=== PATIENT | female | born 2000 | race Caucasian/White ===

== ENCOUNTER → 2019-06-14 14:52 | Outpatient (CLI) | payer MEDICAID, SELFPAY ==
[2019-06-14 14:22] VITALS: BMI 24.1
[2019-06-14 17:12] LABS: HIV - WCH Non-Reactive (Nonreactive)
[2019-06-16 03:50] LABS: Rapid Plasmin Reagin (RPR) NONREACTIVE (NONREACTIVE)
[2019-06-16 20:07] LABS: HCV Quant. RNA PCR HCV Not Detected IU/mL (.)
[2019-06-16 20:51] LABS: HSV 1 IgG < 0.91 index (0.00-0.90); HSV 2 IgG < 0.91 index (0.00-0.90)
== END ==
PROVIDERS: Nurse Practitioner Women's Health; Referring Provider Obstetrics & Gynecology; Visit Provider Obstetrics & Gynecology
DX: R30.0 Dysuria (principal); Z11.3 Encounter for screening for infections with a predominantly sexual mode of transmission
CPT/HCPCS: 36415; 86592; 86695; 86696; 86703; 87086; 87088; 87522

== ENCOUNTER → 2019-07-19 16:28 | Outpatient (CLI) | payer MEDICAID, SELFPAY ==
[2019-07-19 14:51] VITALS: BMI 24.1
[2019-07-19 22:30] LABS: Chlamydia Trachomatis by PCR POSITIVE (Negative); Neisserai gonorrhoeae by PCR Negative (Negative); Probe Check PASS
== END ==
PROVIDERS: Referring Provider Nurse Practitioner Women's Health; Visit Provider Nurse Practitioner Women's Health
DX: A74.9 Chlamydial infection, unspecified (principal)
CPT/HCPCS: 87491; 87591

== ENCOUNTER → 2019-09-01 18:04 | Outpatient (CLI) | payer MEDICAID, SELFPAY ==
[2019-09-01 13:32] VITALS: BMI 24.1
[2019-09-01 20:53] LABS: Chlamydia Trachomatis by PCR Negative (Negative); Neisserai gonorrhoeae by PCR Negative (Negative); Probe Check PASS; Sample Adequacy Control PASS; Specimen Processing Control PASS
== END ==
PROVIDERS: Visit Provider Nurse Practitioner Women's Health
DX: A74.9 Chlamydial infection, unspecified (principal)
CPT/HCPCS: 87491; 87591

== ENCOUNTER → 2019-10-18 | Outpatient (CLI) | payer MEDICAID, SELFPAY ==
[2019-10-18 14:36] VITALS: BMI 24.1
[2019-10-18 19:55] LABS: Chlamydia Trachomatis by PCR Negative (Negative); Neisserai gonorrhoeae by PCR Negative (Negative); Probe Check PASS; Sample Adequacy Control PASS; Specimen Processing Control PASS
== END | disposition home or self-care (01) ==
LOC: LABSPEC 17:23
PROVIDERS: Referring Provider Nurse Practitioner Women's Health; Visit Provider Nurse Practitioner Women's Health
DX: N93.0 Postcoital and contact bleeding (principal); Z11.3 Encounter for screening for infections with a predominantly sexual mode of transmission
CPT/HCPCS: 87491; 87591

== ENCOUNTER → 2020-05-02 16:42 | Outpatient (CLI) | payer MEDICAID, SELFPAY ==
[2020-05-02 15:26] VITALS: BMI 29.0
[2020-05-02 19:22] LABS: Chlamydia Trachomatis by PCR Negative (Negative); Neisserai gonorrhoeae by PCR Negative (Negative); Probe Check PASS; Sample Adequacy Control PASS; Specimen Processing Control PASS
== END ==
PROVIDERS: Visit Provider Nurse Practitioner Women's Health
DX: Z11.3 Encounter for screening for infections with a predominantly sexual mode of transmission (principal); R10.2 Pelvic and perineal pain
CPT/HCPCS: 87070; 87205; 87491; 87591

== ENCOUNTER → 2020-05-05 10:34 | Outpatient (CLI) | payer MEDICAID, SELFPAY ==
[2020-05-02 15:26] VITALS: BMI 29.0
--- NOTE | 2020-05-05 10:36 | US_ITS ---
STUDY: ULTRASOUND OF THE FEMALE PELVIS - COMPLETE REASON FOR EXAM: Female, 19 years old. pelvic pain LMP: 05/04/2020 TECHNIQUE: Transabdominal and Transvaginal TECHNICAL QUALITY: Adequate. COMPARISON: None. FINDINGS: The uterus is anteverted and is in a midline position. The uterus measures 6.6 x 2.9 x 2.2 cm. Normal uterine cervix. The endometrium measures 4 mm in thickness, and is hyperechoic. There is no demonstrated endometrial mass. There is no demonstrated myometrial mass. I.U.D. - The patient does have an I.U.D. The right ovary is visualized. The right ovary measures 2.8 x 2.5 x 1.9 cm. There is no right ovarian cyst or ovarian mass. There is no visualized right adnexal mass or complex lesion. There is normal arterial and normal venous vascularity. The left ovary is visualized. The left ovary measures 3.4 x 2.2 x 1.7 cm. There is no left ovarian cyst or ovarian mass. There is no visualized left adnexal mass or complex lesion. There is normal arterial and normal venous vascularity. There is no fluid in the cul-de-sac. The pre void volume of the bladder was 514 ml. US/Pelvic (Non ) IMPRESSION: Normal female pelvis. Normal appearance of IUD. Electronically Signed: Mario John MD at 16:01 EST , Service support ,
--- NOTE | 2020-05-05 10:36 | US_ITS ---
STUDY: ULTRASOUND OF THE FEMALE PELVIS - COMPLETE REASON FOR EXAM: Female, 19 years old. pelvic pain LMP: 05/04/2020 TECHNIQUE: Transabdominal and Transvaginal TECHNICAL QUALITY: Adequate. COMPARISON: None. FINDINGS: The uterus is anteverted and is in a midline position. The uterus measures 6.6 x 2.9 x 2.2 cm. Normal uterine cervix. The endometrium measures 4 mm in thickness, and is hyperechoic. There is no demonstrated endometrial mass. There is no demonstrated myometrial mass. I.U.D. - The patient does have an I.U.D. The right ovary is visualized. The right ovary measures 2.8 x 2.5 x 1.9 cm. There is no right ovarian cyst or ovarian mass. There is no visualized right adnexal mass or complex lesion. There is normal arterial and normal venous vascularity. The left ovary is visualized. The left ovary measures 3.4 x 2.2 x 1.7 cm. There is no left ovarian cyst or ovarian mass. There is no visualized left adnexal mass or complex lesion. There is normal arterial and normal venous vascularity. There is no fluid in the cul-de-sac. The pre void volume of the bladder was 514 ml. US/Transvaginal Non- IMPRESSION: Normal female pelvis. Normal appearance of IUD. Electronically Signed: Mario John MD at 16:01 EST , Service support ,
== END ==
PROVIDERS: Referring Provider Nurse Practitioner Women's Health; Visit Provider Nurse Practitioner Women's Health
DX: R10.2 Pelvic and perineal pain (principal)
CPT/HCPCS: 76830; 76856; 93976

== ENCOUNTER → 2021-02-12 12:50 | Outpatient (CLI) | payer MEDICAID, SELFPAY ==
[2021-02-14 22:07] LABS: Chlamydia By Nucleic Acid AMP Negative (Negative)
[2021-02-14 22:32] LABS: Gonococcus By Nucleic Acid AMP Negative (Negative)
[2021-02-15 13:54] LABS: HPV Reflexed? NOT INDICATED
== END ==
PROVIDERS: Referring Provider Nurse Practitioner Women's Health; Visit Provider Nurse Practitioner Women's Health
DX: N76.0 Acute vaginitis (principal); Z11.3 Encounter for screening for infections with a predominantly sexual mode of transmission; Z12.4 Encounter for screening for malignant neoplasm of cervix
CPT/HCPCS: 87070; 87205; 87491; 87591; 88175; G0145

== ENCOUNTER 2021-07-25 13:20 | Outpatient (CLI) | payer MEDICAID, SELFPAY ==
[2021-07-25 14:12] LABS: Amphetamine Urine VISTA NEGATIVE (<1000 ng/mL); Barbiturate Urine VISTA NEGATIVE (< 200 ng/mL); Benzodiazepine Urine VISTA NEGATIVE (< 200 ng/mL); Cocaine Urine VISTA NEGATIVE (< 300 ng/mL); Ecstacy Urine VISTA NEGATIVE (< 500 ng/mL); Methadone Urine VISTA NEGATIVE (< 300 ng/mL); PCP Urine VISTA NEGATIVE (< 25 ng/mL); THC Urine VISTA POSITIVE (< 50 ng/mL); Vista UDS pH Range 7
[2021-07-29 05:07] LABS: Chlamydia By Nucleic Acid AMP Negative (Negative)
[2021-07-29 13:31] LABS: Gonococcus By Nucleic Acid AMP Negative (Negative)
== END 2021-07-25 23:59 | disposition home or self-care (01) ==
LOC: LABSPEC 13:22
PROVIDERS: Visit Provider Obstetrics & Gynecology
DX: Z34.00 Encounter for supervision of normal first pregnancy, unspecified trimester (principal)
CPT/HCPCS: 80307; 87491; 87591

== ENCOUNTER 2021-08-09 16:33 | Outpatient (CLI) | payer MEDICAID, SELFPAY | END 2021-08-09 23:59 | disposition home or self-care (01) | LOC: LABSPEC 16:34 | PROVIDERS: Referring Provider Obstetrics & Gynecology; Visit Provider Obstetrics & Gynecology | DX: O23.40 Unspecified infection of urinary tract in pregnancy, unspecified trimester (principal); Z3A.00 Weeks of gestation of pregnancy not specified | CPT/HCPCS: 87086; 87088 ==

== ENCOUNTER 2021-08-23 12:09 | Outpatient (CLI) | payer MEDICAID, SELFPAY ==
[2021-08-23 12:50] LABS: Absolute Lymphocyte Count 2.18 X10^3/uL (0.83-4.51); Absolute Neutrophil Count 3.8 X10^3/uL (2.0-7.7); Basophil# 0.03 X10^3/uL; Basophil% 0.5 % (0-1); Eosinophil# 0.12 X10^3/uL; Eosinophils% 1.8 % (0-5); Hematocrit 37.8 % (37-47); Lymphocyte # 2.18 X10^3/ul (0.83-4.51); Lymphocyte % 33.3 % (19-41); Mean Corp Hgb Conc 34.4 g/dL (32-36); Mean Corpuscular Hgb 30.2 pg (27.0-32.0); Mean Corpuscular Volume 87.7 fL (81-99); Monocyte# 0.45 X10^3/uL; Monocyte% 6.9 % (0-10); NRBC Flagged by Analyzer 0 % (0-5); Neutrophil # 3.75 X10^3/uL (2.7-7.7); Neutrophil % 57.2 % (47-70); Platelet Count 233 K/mm3 (150-450); RBC Distribution Width CV 12.1 % (11.6-14.6); RBC Distribution Width SD 39.4 fl (35.1-43.9); Red Blood Count 4.31 M/mm3 (4.2-5.4); White Blood Count 6.6 K/mm3 (4.4-11.0)
[2021-08-23 13:15] LABS: NATERA MAILED SPECIMEN
[2021-08-23 14:04] LABS: HIV - WCH Non-Reactive (Nonreactive); Hepatitis B Surface Antigen Non-Reactive (Nonreactive); Hepatitis C Antibody Non-Reactive (Nonreactive); Rubella IgG Reactive (Nonreactive); Syphilis Antibodies Non-reactive
== END 2021-08-23 23:59 | disposition home or self-care (01) ==
LOC: LABSPEC 12:12
PROVIDERS: Referring Provider Obstetrics & Gynecology; Visit Provider Obstetrics & Gynecology
DX: Z34.81 Encounter for supervision of other normal pregnancy, first trimester (principal); Z31.430 Encounter of female for testing for genetic disease carrier status for procreative management
CPT/HCPCS: 36415; 85025; 86703; 86762; 86780; 86803; 86850; 86900; 86901; 87340

== ENCOUNTER 2021-09-03 12:20 | Day surgery (SDC) | payer MEDICAID, SELFPAY ==
--- NOTE | 2021-09-02 20:11 | PCM.HP.BLA ---
History and Physical Date of Admission: 09/03/21 Date of Service: 09/02/21 MR#:[id number]:[id number]: GIOVANNA TERRELL #:[id number]:[id number] Provider:Dr. Nita Hanks, DOAge/Sex: 20/F [facility] Int[facility] Vital Signs 09/02/21 13:27 Height 5 ft 1.5 in Weight: 154 lb 2 oz BMI 28.6 BP 120/68 Intake Visit Reasons: 12WK OB Midlevel Provider Required: No Is patient in pain?: No Allergies No Known Allergies Allergy (Verified 09/02/21 13:27) Medications prenat.vits,piotr,yss-smpt-vdjux 1 tab PO DAILY 07/23/21 [History Confirmed 09/02/21] promethazine 12.5 mg tablet 12.5 mg PO Q6H PRN #60 tab 08/09/21 [Rx Confirmed 09/02/21] ondansetron 4 mg disintegrating tablet 4 mg PO Q4H PRN #60 tab 09/02/21 [Rx Confirmed 09/02/21] Last Menstral Period: 05/26/21 Zika: Zika virus screening: Negative : No PFSH PFSH Medical History Chlamydia infection Migraines MRSA (methicillin resistant Staphylococcus aureus) Surgical History H/O knee surgery [place] teeth extracted Family History Grandmother Breast cancer Mother Cancer Skin Brother Retinal and vitreous disorder Social History adopted: No household members: significant other housing: house number of children: 0 current occupational status: employed and student current occupation: [employer] pets and animals: Yes (avoid litter box) pets and animals: cat(s) sexually active: Yes Smoking Status: Former smoker second hand exposure: No alcohol intake: current details: not since substance use type: does not use seatbelt use: always do you feel safe at home: Yes Pregancy History 1 Elective abortions Hx Para 0 Spontaneous abortions Hx # Term Pregnancies Ectopic pregnancies Hx # Pregnancies Multiple births # of living children HPI 12WK OB Details: GIOVANNA TERRELL is a 20 year old who presents for routine OB visit. OB Visit NATY Calculator Estimated Delivery Date Method Current WG Current Estimate 03/16/22 Ultrasound #2 12w 1d Other Estimates 03/02/22 LMP (Certain) 14w 1d 03/19/22 Ultrasound #1 11w 5d Expected Delivery Route/Plan Labor Preferences- CB/BF classes: [] labor support person: [] labor intervention preferences: [] pain management options preferred: [] cut cord/dad catch: [] : [] PP control planned: [] discussed possible routes of delivery and associated risks: [] special requests: [] Specific Issue/Plans Covid status: [] Flu vaccine: [] Tdap vaccine: [] Rhogam: [] LARC form signed: [] Problem list reviewed and updated with the most current plan of care details and appropriate orders placed. Relevant counseling for the gestational age provided. Continue routine care and follow up unless otherwise noted in visit notes/problem list details Initial Weight: Not Recorded Date EGA Weight BP Urine Prot Glucose FHR FuHt Pres Dilation Effaced St Visit Note 07/25/21 6w 4d 155 lb 8 oz 120/80 106 JV- small CRL measured to be 6w1d FHT 106, maternal heart rate 84. rpt us 2 weeks. 08/09/21 8w 5d 154 lb 6 oz 118/80 Negative Negative 160 JV- normal heart rate, pt reassured. 09/02/21 12w 1d 154 lb 2 oz 120/68 Negative Negative JV- no heart tones on ultrasound. fetus is measuring 9 weeks 3 days pt consents to suction D&C to be performed tomorrow. ACOG First Trimester First Trimester: Discussed Second Trimester Second Trimester: Signs and Symptoms of Labor, Selecting a care provider, Reproductive Life Planning & Contreception, Care Planning, Depression/Anxiety and Intimate Partner Violence; Discussed Tobacco Cessation Third Trimester Third Trimester: Pain Management Plans, Labor support person(s), Immediate Larc, Movement Monitoring, Signs and Symptoms of Preeclampsia and [place] [facility] Diagnostics Diagnostics: Blood Type A POSITIVE Antibody Screen NEGATIVE HIV 1&2 Antibody Non-Reactive (Nonreactive) Rubella IgG Antibody Reactive (Nonreactive) Hgb 13.0 g/dL (12.0-15.0) Hct 37.8 % (37-47) Chlamydia DNA (NATHANIEL) Negative (Negative) N.gonorrhoeae DNA (NATHANIEL) Negative (Negative) Details: HIV: Urine Culture: Sequential Screen: NIPT Screen: ROS Const Denies fever(s) GI Reports as per HPI and Denies abdominal pain Reports as per HPI, Denies abnormal vaginal bleeding, Denies dysuria and Denies vaginal discharge Exam Const General: healthy appearing, comfortable and no acute distress GI Inspection: normal to inspection Palpation: soft and nontender Results POC Urinalysis 2 Dip (Clinic) Office Urine Glucose Negative Last Edit by Yanet Turk on 09/02/21 13:57 Office Urine Protein Negative Last Edit by Yanet Turk on 09/02/21 13:57 Coding Level of Care Code Off vis,new,level 4 Diagnoses Marijuana abuse F12.10 Z3A.12 Weeks of gestation: 12 weeks UTI in O23.40 Nausea/vomiting in O21.9 Supervision of normal first Z34.00 Migraine with aura G43.109 Intractability: not intractable Status migrainosus presence: without status migrainosus Missed O02.1 Assessment and Plan Assessment and Plan (1) Marijuana abuse: Status: Acute Comment: Positive at NOB, random tox (2) : Status: Acute Qualifiers: Weeks of gestation: 12 weeks Qualified Code(s): Z3A.12 - 12 weeks gestation of Comment: Discussed carrier and genetic screen, negative urine culture (3) UTI in : Status: Acute Comment: 07/18 see in ED at [facility] and had UTI/Rx macrobid. Will need repeat culture after done with Rx (4) Nausea/vomiting in : Status: Acute Comment: failed phenergan, zofran sent (5) Supervision of normal first : Status: Acute Comment: Grav 1/0 NATY by LMP 03/02 but US at [facility] 07/18 was 5w 6 d. Need to add to calendar after US BF:James(has daughter) (6) Migraine with aura: Status: Acute Qualifiers: Intractability: not intractable Status migrainosus presence: without status migrainosus Qualified Code(s): G43.109 - Migraine with aura, not intractable, without status migrainosus (7) Missed : Status: Acute Comment: plan for suction dilation and curettage tomorrow 07/05 Plan Details Other Medications: Refilled: ondansetron 4 mg PO Q4H PRN 60 tabs 3RF nausea and vomiting Other Orders: Orders: POC Urinalysis 2 Dip (Clinic) Today 09/02/21 1424<Electronically signed by Nita Hanks DO>Date Nita Hanks DO UPDATE- I have seen the patient and performed any clinically relevant updates to the history and physical exam. Nita Hanks DO
[2021-09-03] VITALS (7 sets, daily range): BP systolic 110–125; BP diastolic 73–91; PULSE 60–97; RESP 15–18; TEMP 36.4–37.1; O2SAT 97–100; BMI 28.9
--- NOTE | 2021-09-03 | POC_PTH ---
PATIENT: GIOVANNA TERRELL #:[id number] [place] [facility] [id number] AGE/SX: ROOM: RE09/03/[address]: Dr. Nita Hanks, : 2000 BED: DIS: 09/03/2021 SPEC #: [id number] RECD: 09/03/21 16:04 STATUS: LARA VAUGHNDelroy #: [id number] TAYA: 09/03/21 00:[address]: Nita Hanks DEPT: SURGICAL PATHOLOGY RECD BY: Rob Webber Tissues: Product of conception, NOS Procedures: Surgery Specimen Level IV HEADER OPERATION: Suction dilation and curettage with genetic Anora testing PRE-OP DIAGNOSIS: Missed TISSUE SUBMITTED: Products of conception for Anora testing MICROSCOPIC DIAGNOSIS Products of conception: Decidua and immature chorionic villi (products of conception). See comment. JANET:deshawn 09/05/2021 COMMENT Results of Anora testing will be reported as an addendum. MICROSCOPIC DESCRIPTION Slides are reviewed. GROSS DESCRIPTION Received without fixative is one container labeled with the patient's name and designated products of conception. The specimen consists of multiple fragments of pink hemorrhagic soft tissue that in aggregate measure 6 x 6 x 1 cm. tissue is not identified. [place] tissue is submitted for Anora study. [place] sections are submitted in two cassettes. / SJ:deshawn 09/04/2021 TC:5 CPT: 52809
[2021-09-03] MEDS: Doxycycline 100 MG CAPSULE PO (13:16)
[2021-09-03] MEDS: Lactated Ringers 1,000 ML 15 ML IV ×2 (13:18→16:19)
[2021-09-03 13:30] LABS: Hematocrit 39.5 % (37-47); Hemoglobin 13.5 g/dL (12.0-15.0); Mean Corp Hgb Conc 34.2 g/dL (32-36); Mean Corpuscular Hgb 30.3 pg (27.0-32.0); Mean Corpuscular Volume 88.8 fL (81-99); Mean Platelet Vol. 9.4 fl (6.2-12.0); Platelet Count 203 K/mm3 (150-450); RBC Distribution Width CV 12.3 % (11.6-14.6); RBC Distribution Width SD 39.9 fl (35.1-43.9); Red Blood Count 4.45 M/mm3 (4.2-5.4); White Blood Count 5.4 K/mm3 (4.4-11.0)
--- NOTE | 2021-09-03 14:33 | PCM.DC ---
Discharge Instructions Diet Discharge Diet: No restrictions Activity Discharge Activity: Return to Normal Activity, May Shower and May Take a Tub Bath (after 1 week) May resume sexual activity in: 1-2 weeks Weight Bearing Status: Weight bearing as tolerated Lifting Restrictions: none Dressing / Incision Call your doctor if you observe: Fever of 101 or Higher, Using more than 1 pad per hour, Shortness of breath and Uncontrolled pain Follow Up Care Please Follow Up With: Nita Hanks DO When: Call [phone] to schedule appointment. Test Results: Test results from this visit will be discussed in further detail at your follow-up appointment, if applicable. Discharge Plan Admission Primary Reason for Your Visit: dilation and curettage Attending Provider: Nita Hanks Instructions Patient Instructions: Miscarriage Trying Again, Loss Grieving, Dilation and Curettage Discharge Orders/Prescriptions Prescriptions: New oxycodone-acetaminophen [Percocet] 5-325 mg tablet 1 tab PO Q4H PRN (Reason: pain) 3 Days Qty: 6 RF: 0 Discontinued ibuprofen 400 mg Tablet 400 mg PO Q6H PRN (Reason: Pain) RF: 0 Referrals / Follow Up: CESILIA CARRILLO [Other] Disposition Disposition (needs filled in before D/C Order can be placed): Home, Self Care
--- NOTE | 2021-09-03 15:17 | PCM.OP.BLANK ---
Problems Associated Problem List Diagnoses (1) Missed : Operative Report Date of Procedure: 09/03/21 Preoperative diagnosis: 12 weeks missed , suspected trisomy on free cell DNA Postoperative diagnosis: 12 weeks missed , suspected trisomy on free cell DNA Surgery: Suction dilation and curettage Surgeon: Dr. Nita Hanks, DO Urine output: none Fluids: 900cc Estimated blood loss: 150cc Details of the proceudre The patient was taken to the operating room and placed under MAC local anesthesia. She was prepped and draped in the normal sterile fashion the dorsal lithotomy position. Bladder was drained of clear urine and anterior lip of the cervix was grasped and the uterus sounded to 12cm. Cervix was progressively dilated to allow passage of a 9 mm suction curette. Progressive passes were made removing the retained products of conception without complication. Sharp curettage confirmed complete removal of the retained products. All instruments were removed from the vagina and excellent hemostasis was noted and the patient was taken to recovery in stable condition. Multi Select Codes Urinary/Genital Urinary/Genital CPT Codes: 90409 Surg Trtmt missed Ab 1TM
[2021-09-03] MEDS: Cefazolin 2 GM in 0.9% Normal Saline 100 ML IV (15:22)
[2021-09-03] MEDS: Lubricating Jelly 60 GM Tube 30 GM (15:22)
[2021-09-03] MEDS: Lidocaine 1% (20 ml mdv) 20 ML Vial (15:36)
[2021-09-03] MEDS: Methylergonovine 0.2 MG/ML Ampul IM (17:00)
[2021-09-04 08:28] LABS: Pathology Specimen OB SEE PATHOLOGY REPORT
== END 2021-09-03 17:26 | disposition home or self-care (01) ==
LOC: SDC 12:26 → AC 12:27
PROVIDERS: Referring Provider Obstetrics & Gynecology; Visit Provider Obstetrics & Gynecology
PROC: (CPT 59820; principal; 2021-09-03 14:30)
DX: O02.1 Missed abortion (principal); F12.10 Cannabis abuse, uncomplicated; Z86.16 Personal history of COVID-19; Z86.14 Personal history of Methicillin resistant Staphylococcus aureus infection; O99.321 Drug use complicating pregnancy, first trimester
CPT/HCPCS: 59820; 01965; 85027; 86850; 86900; 86901; 87426; 88305; J7120; J2405

== ENCOUNTER → 2022-03-13 | Outpatient (CLI) | payer MEDICAID, SELFPAY ==
[2022-03-13 18:54] LABS: Amphetamine Urine VISTA NEGATIVE (<1000 ng/mL); Barbiturate Urine VISTA NEGATIVE (< 200 ng/mL); Benzodiazepine Urine VISTA NEGATIVE (< 200 ng/mL); Cocaine Urine VISTA NEGATIVE (< 300 ng/mL); Ecstacy Urine VISTA NEGATIVE (< 500 ng/mL); Methadone Urine VISTA NEGATIVE (< 300 ng/mL); PCP Urine VISTA NEGATIVE (< 25 ng/mL); THC Urine VISTA POSITIVE (< 50 ng/mL); Vista UDS pH Range 6
[2022-03-17 00:07] LABS: Chlamydia By Nucleic Acid AMP Negative (Negative)
[2022-03-21 14:28] LABS: Gonococcus By Nucleic Acid AMP Negative (Negative)
== END | disposition home or self-care (01) ==
PROVIDERS: Visit Provider Obstetrics & Gynecology
DX: O09.90 Supervision of high risk pregnancy, unspecified, unspecified trimester (principal)
CPT/HCPCS: 80307; 87086; 87088; 87491; 87591

== ENCOUNTER → 2022-04-11 | Outpatient (CLI) | payer MEDICAID, SELFPAY ==
[2022-04-11 15:48] LABS: Absolute Lymphocyte Count 2.31 X10^3/uL (0.83-4.51); Absolute Neutrophil Count 4.5 X10^3/uL (2.0-7.7); Basophil# 0.03 X10^3/uL; Basophil% 0.4 % (0-1); Eosinophil# 0.07 X10^3/uL; Hematocrit 37.5 % (37-47); Hemoglobin 13.4 g/dL (12.0-15.0); Lymphocyte # 2.31 X10^3/ul (0.83-4.51); Lymphocyte % 31.9 % (19-41); Mean Corp Hgb Conc 35.7 g/dL (32-36); Mean Corpuscular Hgb 30.7 pg (27.0-32.0); Mean Corpuscular Volume 85.8 fL (81-99); Mean Platelet Vol. 9.7 fl (6.2-12.0); Monocyte# 0.34 X10^3/uL; Monocyte% 4.7 % (0-10); NRBC Flagged by Analyzer 0 % (0-5); Neutrophil # 4.48 X10^3/uL (2.7-7.7); Neutrophil % 61.9 % (47-70); Platelet Count 233 K/mm3 (150-450); RBC Distribution Width CV 12.6 % (11.6-14.6); RBC Distribution Width SD 39.6 fl (35.1-43.9); Red Blood Count 4.37 M/mm3 (4.2-5.4); White Blood Count 7.2 K/mm3 (4.4-11.0)
[2022-04-11 16:34] LABS: Glucose Challenge Gest 1H 50g 140 mg/dL (70-140)
[2022-04-11 17:09] LABS: HIV - WCH Non-Reactive (Nonreactive); Hepatitis B Surface Antigen Non-Reactive (Nonreactive); Hepatitis C Antibody Non-Reactive (Nonreactive); Rubella IgG Reactive (Nonreactive); Syphilis Antibodies Non-reactive
== END | disposition home or self-care (01) ==
LOC: LAB 14:23
PROVIDERS: Visit Provider Obstetrics & Gynecology
DX: O09.90 Supervision of high risk pregnancy, unspecified, unspecified trimester (principal); Z3A.00 Weeks of gestation of pregnancy not specified
CPT/HCPCS: 36415; 82950; 85025; 86703; 86762; 86780; 86803; 86850; 86900; 86901; 87340

== ENCOUNTER → 2022-04-22 | Outpatient (CLI) | payer MEDICAID, SELFPAY ==
[2022-04-22 11:37] LABS: Glucose GTT-Gestation. Fasting 89 mg/dL (<105)
[2022-04-22 13:58] LABS: Glucose GTT-Gestational 1 Hr 126 mg/dL (<190)
[2022-04-22 14:15] LABS: Glucose GTT-Gestational 3 Hr 109 L (<145)
[2022-04-22 15:20] LABS: Glucose GTT-Gestational 2 Hr 139 mg/dL (<165)
== END | disposition home or self-care (01) ==
LOC: LAB 09:54
PROVIDERS: Referring Provider Obstetrics & Gynecology; Visit Provider Obstetrics & Gynecology
DX: Z13.1 Encounter for screening for diabetes mellitus (principal)
CPT/HCPCS: 36415; 82951; 82952

== ENCOUNTER → 2022-06-30 | Outpatient (CLI) | payer MEDICAID, SELFPAY ==
[2022-06-30 16:20] LABS: Absolute Neutrophil Count 5.1 X10^3/uL (2.0-7.7); Basophil# 0.02 X10^3/uL; Basophil% 0.2 % (0-1); Eosinophil# 0.13 X10^3/uL; Eosinophils% 1.6 % (0-5); Hematocrit 34.1 % (37-47); Hemoglobin 11.4 g/dL (12.0-15.0); Lymphocyte % 27.2 % (19-41); Mean Corp Hgb Conc 33.4 g/dL (32-36); Mean Corpuscular Hgb 31.1 pg (27.0-32.0); Mean Corpuscular Volume 93.2 fL (81-99); Mean Platelet Vol. 9.4 fl (6.2-12.0); Monocyte# 0.61 X10^3/uL; Monocyte% 7.5 % (0-10); NRBC Flagged by Analyzer 0 % (0-5); Neutrophil # 5.09 X10^3/uL (2.7-7.7); Neutrophil % 62.9 % (47-70); Platelet Count 241 K/mm3 (150-450); RBC Distribution Width CV 13.3 % (11.6-14.6); RBC Distribution Width SD 45.3 fl (35.1-43.9); Red Blood Count 3.66 M/mm3 (4.2-5.4); White Blood Count 8.1 K/mm3 (4.4-11.0)
[2022-06-30 16:37] LABS: Glucose Challenge Gest 1H 50g 140 mg/dL (70-140)
[2022-06-30 17:10] LABS: HIV - WCH Non-Reactive (Nonreactive); Syphilis Antibodies Non-reactive
== END | disposition home or self-care (01) ==
LOC: LAB 15:51
PROVIDERS: Visit Provider Obstetrics & Gynecology
DX: O09.90 Supervision of high risk pregnancy, unspecified, unspecified trimester (principal); Z13.1 Encounter for screening for diabetes mellitus; Z3A.00 Weeks of gestation of pregnancy not specified
CPT/HCPCS: 36415; 82950; 85025; 86703; 86780

== ENCOUNTER → 2022-07-09 | Outpatient (CLI) | payer MEDICAID, SELFPAY ==
--- NOTE | 2022-07-09 19:36 | US_ITS ---
STUDY: RENAL ULTRASOUND - COMPLETE REASON FOR EXAM: Female, 21 years old. back / - Right side pain TECHNIQUE: Ultrasound evaluation of the kidneys was performed with real-time and static espinoza-scale imaging. COMPARISON: None. FINDINGS: RIGHT KIDNEY: Normal location of the right kidney, which is normal in size. The right kidney measures 11.4x5.6 cm. . There is a normal cortex of the right kidney. There is no right renal mass or cyst. There is a 7mm right renal calculi. There is moderate hydronephrosis of the right kidney. DISTAL RIGHT URETER: There is non-visualization of the distal right ureter. There is no demonstrated right ureterovesical junction calculus. There is no demonstrated right ureteral jet. LEFT KIDNEY: Normal location of the left kidney, which is normal in size. The left kidney measures 10.5 x 5.1 cm. . There is a normal cortex of the left kidney. There is no left renal mass or cyst. There are no left renal calculi. There is no left hydronephrosis. DISTAL LEFT URETER: There is non-visualization of the distal left ureter. There is no demonstrated left ureterovesical junction calculus. There is no demonstrated left ureteral jet. AORTA: There is obscuration of the abdominal aorta by overlying bowel gas I.V.C.: It is not visualized. There is too much overlying bowel gas. BLADDER: The distended urinary bladder has a volume in cc of 17. There is a normal wall thickness of the distended urinary bladder. There is no demonstrated mass within the urinary bladder. There are no demonstrated bladder calculi. US/Kidney and Bladder IMPRESSION: There is moderate hydronephrosis of the right kidney. There is a 7mm right renal calculi. Electronically Signed: John Chung MD at 20:07 EST ,
== END | disposition home or self-care (01) ==
LOC: US 19:36
PROVIDERS: Visit Provider Obstetrics & Gynecology
DX: O99.891 Other specified diseases and conditions complicating pregnancy (principal); M54.9 Dorsalgia, unspecified; Z3A.00 Weeks of gestation of pregnancy not specified
CPT/HCPCS: 76770

== ENCOUNTER → 2022-08-01 | Outpatient (CLI) | payer MEDICAID, SELFPAY ==
[2022-08-01 07:59] LABS: Glucose GTT-Gestation. Fasting 108 mg/dL (<105)
[2022-08-01 09:11] LABS: Glucose GTT-Gestational 1 Hr 151 mg/dL (<190)
[2022-08-01 09:53] LABS: Glucose GTT-Gestational 2 Hr 149 mg/dL (<165)
[2022-08-01 10:40] LABS: Glucose GTT-Gestational 3 Hr 128 L (<145)
== END | disposition home or self-care (01) ==
LOC: LAB 06:56
PROVIDERS: Referring Provider Obstetrics & Gynecology; Visit Provider Obstetrics & Gynecology
DX: O99.810 Abnormal glucose complicating pregnancy (principal); Z3A.00 Weeks of gestation of pregnancy not specified
CPT/HCPCS: 82951; 82952

== ENCOUNTER → 2022-08-11 | Outpatient (CLI) | payer MEDICAID, SELFPAY ==
[2022-08-11 12:33] LABS: Amphetamine Urine VISTA NEGATIVE (<1000 ng/mL); Barbiturate Urine VISTA NEGATIVE (< 200 ng/mL); Benzodiazepine Urine VISTA NEGATIVE (< 200 ng/mL); Cocaine Urine VISTA NEGATIVE (< 300 ng/mL); Ecstacy Urine VISTA NEGATIVE (< 500 ng/mL); Methadone Urine VISTA NEGATIVE (< 300 ng/mL); PCP Urine VISTA NEGATIVE (< 25 ng/mL); THC Urine VISTA NEGATIVE (< 50 ng/mL); Vista UDS pH Range 7
== END | disposition home or self-care (01) ==
LOC: LABSPEC 11:33
PROVIDERS: Referring Provider Nurse Practitioner Women's Health; Visit Provider Nurse Practitioner Women's Health
DX: Z34.90 Encounter for supervision of normal pregnancy, unspecified, unspecified trimester (principal); F12.10 Cannabis abuse, uncomplicated
CPT/HCPCS: 80307

== ENCOUNTER → 2022-09-10 | Outpatient (CLI) | payer MEDICAID, SELFPAY | END | disposition home or self-care (01) | LOC: LABSPEC 12:54 | PROVIDERS: Referring Provider Obstetrics & Gynecology; Visit Provider Obstetrics & Gynecology | DX: O09.90 Supervision of high risk pregnancy, unspecified, unspecified trimester (principal); Z3A.00 Weeks of gestation of pregnancy not specified | CPT/HCPCS: 87081 ==

== ENCOUNTER → 2022-10-01 | Outpatient (CLI) | payer MEDICAID, SELFPAY ==
[2022-10-01 12:02] LABS: Protein, Urine (Random) 56.6 mg/dL (<11.9); Protein:Creat Ratio 252 mg/g CRE (0-200)
== END | disposition home or self-care (01) ==
LOC: LABSPEC 11:31
PROVIDERS: Referring Provider Registered Nurse; Visit Provider Registered Nurse
DX: O09.90 Supervision of high risk pregnancy, unspecified, unspecified trimester (principal)
CPT/HCPCS: 82570; 84156

== ENCOUNTER 2022-10-02 14:14 | Outpatient (CLI) | payer MEDICAID, SELFPAY ==
[2022-10-02 14:45] VITALS: BP 123/79; PULSE 98; O2SAT 93
[2022-10-02 15:16] VITALS: BMI 40.0
[2022-10-02 17:40] VITALS: TEMP 36.7
--- NOTE | 2022-10-03 14:53 | OB.TRI.HP_ITS ---
HPI - General General Date of Admission: 10/02/22 HPI Narrative GIOVANNA TERRELL, is a 21 F who presents to L&D with painful contractions that are 5- 8 minutes apart. she denies lof, vaginal bleeding, or dec fm. Maternal Data Information NATY Calculator Estimated Delivery Date Method Current WG Current Estimate 10/06/22 LMP (Certain) 39w 4d Other Estimates 10/04/22 Ultrasound #1 39w 6d PFSH PFSH Medical History Anxiety Chlamydia infection COVID Easy bruising Friable cervix Heartburn Marijuana abuse Marijuana use Migraines Missed MRSA (methicillin resistant Staphylococcus aureus) Nausea/vomiting in Seizures Shortness of breath on exertion Smoker Supervision of normal first UTI in Wears glasses Home Medications PNV 153-FA 400 mcg-om3 35 mg-dha 25 mg-epa 5 mg-fish oil chew tablet tab PO 02/27/22 [History Last Taken Unknown] ondansetron HCl 4 mg tablet 4 mg PO Q8H 02/27/22 [History Last Taken Unknown] ondansetron 4 mg disintegrating tablet 4 mg PO Q8H PRN nausea and vomiting #30 tabs 03/13/22 [Rx Last Taken Unknown] famotidine 20 mg tablet (Pepcid) 20 mg PO DAILY #30 tabs 06/30/22 [Rx Last Taken Unknown] cyclobenzaprine 5 mg tablet 5 mg PO TID PRN muscle spasm #30 tabs 07/09/22 [Rx Last Taken Unknown] cephalexin 500 mg capsule 500 mg PO BID #14 caps 07/10/22 [Rx Last Taken Unknown] albuterol sulfate 90 mcg/actuation aerosol inhaler See Rx Instructions .Route .COMPLEX #6.7 grams 07/15/22 [Rx Last Taken Unknown] miscellaneous medical supply 1 ea miscellaneous ONCE #1 ea 07/29/22 [Rx Last Taken Unknown] Allergy/AdvReac Type Severity Reaction Status Date / Time No Known Allergies Allergy Verified 10/02/22 15:17 Family History Grandmother Breast cancer Mother Cancer Skin Brother Retinal and vitreous disorder Other Autism disorder Surgical History H/O knee surgery Status post dilation and curettage [place] teeth extracted Social History adopted: No household members: significant other and friend(s) housing: house number of children: 0 current occupational status: employed and 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 current occupational exposures/hazards: No pets and animals: Yes (avoid litter box) pets and animals: cat(s) history of recent travel: No sexually active: Yes Smoking Status: Former smoker second hand exposure: No alcohol intake: former details: not since substance use type: does not use well-balanced diet: daily or most days caffeine: Yes Type: coffee Number of servings: 1 eating out: 4 or more times/week during the past year weight has: remained stable what type of physical activity do you participate in: none govind/bahai: None seatbelt use: always do you feel safe at home: Yes additional social history: BF- [facility] History 2 Elective abortions Hx Para 0 Spontaneous abortions 1 Hx # Term Pregnancies Ectopic pregnancies Hx # Pregnancies Multiple births # of living children 0 Visit Details Expected Delivery Route/Plan Labor Preferences- CB/BF classes: encouraged labor support person: James labor intervention preferences: [] pain management options preferred: nitrous oxide cut cord/dad catch: cord : yes PP control planned: discussed discussed possible routes of delivery and associated risks: [] special requests: [] Plans Covid status: had covid x2 Flu vaccine: declines Tdap vaccine: considering Rhogam: na LARC form signed: yes Problem list reviewed and updated with the most current plan of care details and appropriate orders placed. Relevant counseling for the gestational age provided. Continue routine care and follow up unless otherwise noted in visit notes/problem list details OB Flowsheet Initial Weight: Not Recorded Date -?-?-?-?-?-?-?-?-?-?-?-?- EGA Weight BP Urine Prot -?-?-?-?-?-?-?-?-?-?-?-?- Glucose FHR FuHt Pres Dilation -?-?-?-?-?-?-?-?-?-?-?-?- Effaced St Visit Note 03/13/22 -?-?-?-?-?-?-?-?-?-?-?-?- 10w 3d 174 lb 4 oz 116/77 -?-?-?-?-?-?-?-?-?-?-?-?- 170 -?-?-?-?-?-?-?-?-?-?-?-?- JV- single live IUP measuring 10 weeks 5 days. consistent with LMP. pt declines genetic testing. last was 12 week loss positive for trisomy 13. 04/11/22 -?-?-?-?-?-?-?-?-?-?-?-?- 14w 4d 172 lb 4 oz 121/85 Nega tive -?-?-?-?-?-?-?-?-?-?-?-?- Negative 155 -?-?-?-?-?-?-?-?-?-?-?-?- JV- no lof, vagi nal bleeding, or cramping. some pressure over bladder when coughs to be expected. pt encouraged to try supportive clothing or band. GCT and PNL today 05/09/22 -?-?-?-?-?-?-?-?-?-?-?-?- 18w 4d 177 lb 6 oz 120/82 Nega tive -?-?-?-?-?-?-?-?-?-?-?-?- Negative 146 -?-?-?-?-?-?-?-?-?-?-?-?- LC- no lof/vb. c ontinues to have difficulty eating- still using MJ, recommended cessation. LC- no lof/vb. continues to have difficulty eating- still using MJ, recommended cessation.having audible wheezing going up her stairs. proair rx sent, pulmonary consult. 06/06/22 -?-?-?-?-?-?-?-?-?-?-?-?- 22w 4d 180 lb 120/86 Negative -?-?-?-?-?-?-?-?-?-?-?-?- Negative 158 -?-?-?-?-?-?-?-?-?-?-?-?- JV- sonolucent a trudi in placenta getting smaller. still has not seen pulm but states feels better. no other complaints today. 07/29/22 -?-?-?-?-?-?-?-?-?-?-?-?- 30w 1d 189 lb 6 oz 117/82 Nega tive -?-?-?-?-?-?-?-?-?-?-?-?- Negative 155 -?-?-?-?-?-?-?-?-?-?-?-?- JV- pt needs 3 h r gtt. phone number given to schedule. pelvic support belt rx given. no other complaints. 08/11/22 -?-?-?-?-?-?-?-?-?-?-?-?- 32w 0d 192 lb 4 oz 114/70 Nega tive -?-?-?-?-?-?-?-?-?-?-?-?- Negative 152 31 -?-?-?-?-?-?-?-?-?-?-?-?- -No VB, LOF. G ood FM. Growth US tomorrow. 08/26/22 -?-?-?-?-?-?-?--?-?-?-?-?- 34w 1d 200 lb 113/79 Negative -?-?-?-?-?-?-?-?-?-?-?-?- Negative 163 34 -?-?-?-?-?-?-?-?-?-?-?-?- -No Vb, LOF. G ood FM. Faisal wrist pain/tingling:enc splints. 09/10/22 -?-?-?-?-?-?-?-?-?-?-?-?- 36w 2d 202 lb 4 oz 126/80 Nega tive -?-?-?-?-?-?-?-?-?-?-?-?- Negative 156 36 0 -?-?-?-?-?-?-?-?-?-?-?-?- 20 -4 LC- no lof /vb/ctx. good fm. gbs collected today. no concerns. 09/17/22 -?-?-?-?-?-?-?-?-?-?-?-?- 37w 2d 205 lb 4 oz 130/80 Nega tive -?-?-?-?-?-?-?-?-?-?-?-?- Negative 152 37 -?-?-?-?-?-?-?-?-?-?-?-?- MH-NoVB, LOF. Go od FM. NO CTX, declines internal exam 09/26/22 -?-?-?-?-?-?-?-?-?-?-?-?- 38w 4d 206 lb 8 oz 130/86 124/84 Trace -?-?-?-?-?-?-?-?-?-?-?-?- Negative 150 38 1.5 -?-?-?-?-?-?-?-?-?-?-?-?- 50 -2 JV- no lof , vaginal bleeding, or dec fm. wants to talk IOL. not favorable 10/01/22 -?-?-?-?-?-?-?-?-?-?-?-?- 39w 2d 210 lb 2 oz 132/90 126/80 1+ -?-?-?-?-?-?-?-?-?-?-?-?- Negative 140 38 2 -?-?-?-?-?-?-?-?-?-?-?-?- 60 -2 LC- no lof /vb/ctx. good fm. membranes swept. labor and PEC precautions reviewed. LC- no lof/vb/ctx. good fm. membranes swept. labor and PEC precautions reviewed.sending urine for P:C ratio. d/w JV. will hold out pt labs ROS Constitutional Constitutional: Reports systems reviewed and no addt'l complaints, except as documented Gastrointestinal Gastrointestinal: Denies bloating, constipation, cramping, diarrhea, nausea or vomiting Genitourinary Genitourinary: Reports other Details: Denies vaginal odor, vaginal bleeding, or vaginal discharge ; Denies difficulty urinating or flank pain Physical Exam HEENT normocephalic Resp normal respiratory effort and normal air movement no CVA tenderness Extremity normal to inspection General Extremity: edema bilateral (trace ) NST FHR Rate Baby A Baseline: 140 Variability:: Moderate Accelerations:: 15 x 15 Decelerations:: None NST Reactive:: Yes FHR Category:: Category I Assessment & Plan (1) False labor after 37 completed weeks of gestation: (2) Back pain affecting : QUALIFIERS: Trimester: third trimester Qualified Code(s): O99.891 - Other specified diseases and conditions complicating ; M54.9 - Dorsalgia, unspecified (3) Carpal tunnel syndrome during : COMMENT: Enc wrist splints (4) Segmental and somatic dysfunction of sacral region: (5) Segmental and somatic dysfunction of lumbar region: (6) Segmental and somatic dysfunction of thoracic region: (7) Kidney stone complicating : (8) Abnormal glucose affecting : COMMENT: 3 hr gct ordered, nl glucose test (9) Placental abnormality in second trimester: COMMENT: 08/13-stable 1.5cm area of placenta abnormally seen 07/03 possible placental lakes-unchanged, repeat growth in 4 weeks per MFM- at 36 week US lakes appear smaller and no evidence of previa. (10) Marijuana abuse: COMMENT: Positive at NOB, random tox; Neg 08/11/22 (11) Obesity affecting : COMMENT: 1 TM GCT (12) Supervision of high risk , antepartum: COMMENT: PRR NATY 10/06/22 [place] KATIA Ramirez (13) : QUALIFIERS: Weeks of gestation: 39 weeks Qualified Code(s): Z3A.39 - 39 weeks gestation of COMMENT: declined NIPT & Carrier testing, failed 1 hr gct, 3HR GTT neg. nl anatomy, GBS neg, PLAN: Plan no change after 4+ hours of monitoring. dc patient to home with labor precautions. keep appt next week. Charges/Coding Multi Select Codes Visit Charges Office Visit/Consults: 09597 OV L3 Est Urinary/Genital Urinary/Genital CPT Codes: 57454-81 non-stress test Interp
== END 2022-10-02 19:44 | disposition home or self-care (01) ==
LOC: WPOUT 14:16 → WP 14:16
PROVIDERS: Referring Provider Obstetrics & Gynecology; Visit Provider Obstetrics & Gynecology
DX: O47.1 False labor at or after 37 completed weeks of gestation (principal); O99.891 Other specified diseases and conditions complicating pregnancy; M54.9 Dorsalgia, unspecified; O99.353 Diseases of the nervous system complicating pregnancy, third trimester; G56.00 Carpal tunnel syndrome, unspecified upper limb; M99.04 Segmental and somatic dysfunction of sacral region; M99.03 Segmental and somatic dysfunction of lumbar region; M99.02 Segmental and somatic dysfunction of thoracic region; O99.323 Drug use complicating pregnancy, third trimester; F12.10 Cannabis abuse, uncomplicated; O99.213 Obesity complicating pregnancy, third trimester; O09.93 Supervision of high risk pregnancy, unspecified, third trimester; Z3A.39 39 weeks gestation of pregnancy
CPT/HCPCS: 59025; 59050 ×2; G0378 ×2; 99221

== ENCOUNTER 2022-10-04 21:20 | Inpatient (IN) | payer MEDICAID, SELFPAY ==
[2022-10-04] VITALS (32 sets, daily range): BP systolic 111–195; BP diastolic 56–112; PULSE 71–102; TEMP 36.2; O2SAT 94–100; BMI 39.1
[2022-10-04 20:42] LABS: Hematocrit 38.9 % (37-47); Hemoglobin 12.6 g/dL (12.0-15.0); Mean Corp Hgb Conc 32.4 g/dL (32-36); Mean Corpuscular Hgb 28.7 pg (27.0-32.0); Mean Corpuscular Volume 88.6 fL (81-99); Mean Platelet Vol. 11.4 fl (6.2-12.0); Platelet Count 274 K/mm3 (150-450); RBC Distribution Width CV 13.5 % (11.6-14.6); RBC Distribution Width SD 43.7 fl (35.1-43.9); Red Blood Count 4.39 M/mm3 (4.2-5.4); White Blood Count 13.4 K/mm3 (4.4-11.0)
[2022-10-04 21:34] LABS: AST(SGOT) 16 U/L (15-37); Alanine Aminotransfer ALT/SGPT 9 U/L (13-56); Creatinine, Serum 0.76 mg/dL (0.55-1.02); EST Glomerular Filtration Rate 99 mL/min (>60); Est Glom Filt Rate - Afr Amer 120 mL/min (>60); Estimated Creatinine Clearance 86.87 ml/min; Uric Acid 4.2 mg/dL (2.6-6.0)
[2022-10-04 21:35] LABS: LDH 156 U/L (84-246)
[2022-10-04] MEDS: Lactated Ringers 1,000 ML 50 ML IV (21:35)
[2022-10-04] MEDS: fentaNYL 100 MCG/2 ML Ampul IV (21:35)
[2022-10-04] MEDS: 0.9% Saline Lock 10 ML Syringe IV (21:36)
[2022-10-04] MEDS: LACTATED RINGERS 500 ML 999 ML IV (21:57)
[2022-10-04 22:02] LABS: Protein, Urine (Random) 336.8 mg/dL (<11.9); Protein:Creat Ratio 920 mg/g CRE (0-200)
--- NOTE | 2022-10-04 22:15 | HP.PCM.OB_ITS ---
HPI - General General Date of Admission: 10/04/22 HPI Narrative GIOVANNA TERRELL, is a 21 F who presents at 39+5 with worsening contractions since this afternoon. active fm, denies vb and lof. was being monitored for BP in office, negative P:C last week. BP elevated on admission, 150s/90s. denies headache, visual changes or RUQ pain. Maternal Data Information NATY Calculator Estimated Delivery Date Method Current WG Current Estimate 10/06/22 LMP (Certain) 39w 5d Other Estimates 10/04/22 Ultrasound #1 40w 0d PFSH PFSH Medical History (Updated 10/04/22 @ 22:49 by Dennise Donovan CNM) Anxiety Chlamydia infection COVID Easy bruising Friable cervix Headache Heartburn Marijuana abuse Marijuana use Migraines Missed MRSA (methicillin resistant Staphylococcus aureus) Nausea/vomiting in Seizures Shortness of breath on exertion Smoker Supervision of normal first UTI in Wears glasses Home Medications PNV 153-FA 400 mcg-om3 35 mg-dha 25 mg-epa 5 mg-fish oil chew tablet 1 tab PO DAILY 02/27/22 [History Last Taken Unknown] famotidine 20 mg tablet (Pepcid) 20 mg PO DAILY #30 tabs 06/30/22 [Rx Last Taken 10/03/22] albuterol sulfate 90 mcg/actuation aerosol inhaler See Rx Instructions .Route .COMPLEX #6.7 grams 07/15/22 [Rx Last Taken 09/26/22] Allergy/AdvReac Type Severity Reaction Status Date / Time No Known Allergies Allergy Verified 10/02/22 15:17 Family History Grandmother Breast cancer Mother Cancer Skin Brother Retinal and vitreous disorder Other Autism disorder Surgical History H/O knee surgery Status post dilation and curettage [place] teeth extracted Social History adopted: No household members: significant other and friend(s) housing: house number of children: 0 current occupational status: employed and student current occupation: [employer] current occupational exposures/hazards: No pets and animals: Yes (avoid litter box) pets and animals: cat(s) history of recent travel: No sexually active: Yes Smoking Status: Former smoker second hand exposure: No alcohol intake: former details: not since substance use type: does not use well-balanced diet: daily or most days caffeine: Yes Type: coffee Number of servings: 1 eating out: 4 or more times/week during the past year weight has: remained stable what type of physical activity do you participate in: none govind/methodist: None seatbelt use: always do you feel safe at home: Yes additional social history: BF- James [email or web address]- [employer] History 2 Elective abortions Hx Para 0 Spontaneous abortions 1 Hx # Term Pregnancies Ectopic pregnancies Hx # Pregnancies Multiple births # of living children 0 Visit Details Expected Delivery Route/Plan Labor Preferences- CB/BF classes: encouraged labor support person: James labor intervention preferences: [] pain management options preferred: nitrous oxide cut cord/dad catch: cord : yes PP control planned: discussed discussed possible routes of delivery and associated risks: [] special requests: [] Plans Covid status: had covid x2 Flu vaccine: declines Tdap vaccine: considering Rhogam: na LARC form signed: yes Problem list reviewed and updated with the most current plan of care details and appropriate orders placed. Relevant counseling for the gestational age provided. Continue routine care and follow up unless otherwise noted in visit notes/problem list details OB Flowsheet Initial Weight: Not Recorded Date -?-?-?-?-?-?-?-?-?-?-?-?- EGA Weight BP Urine Prot -?-?-?-?-?-?-?-?-?-?-?-?- Glucose FHR FuHt Pres Dilation -?-?-?-?-?-?-?-?-?-?-?-?- Effaced St Visit Note 03/13/22 -?-?-?-?-?-?-?-?-?-?-?--?- 10w 3d 174 lb 4 oz 116/77 -?-?-?-?-?-?-?-?-?-?-?-?- 170 -?-?-?-?-?-?-?-?-?-?-?-?- JV- single live IUP measuring 10 weeks 5 days. consistent with LMP. pt declines genetic testing. last was 12 week loss positive for trisomy 13. 04/11/22 -?-?-?-?-?-?-?-?-?-?-?-?- 14w 4d 172 lb 4 oz 121/85 Nega tive -?-?-?-?-?-?-?-?-?-?-?-?- Negative 155 -?-?-?-?-?-?-?-?-?-?-?-?- JV- no lof, vagi nal bleeding, or cramping. some pressure over bladder when coughs to be expected. pt encouraged to try supportive clothing or band. GCT and PNL today 05/09/22 -?-?-?-?-?-?-?-?-?-?-?-?- 18w 4d 177 lb 6 oz 120/82 Nega tive -?-?-?-?-?--?-?-?-?-?-?-?- Negative 146 -?-?-?-?-?-?-?-?-?-?-?-?- LC- no lof/vb. c ontinues to have difficulty eating- still using MJ, recommended cessation. LC- no lof/vb. continues to have difficulty eating- still using MJ, recommended cessation.having audible wheezing going up her stairs. elicia taylor sent, pulmonary consult. 06/06/22 -?-?-?-?-?-?-?-?-?-?-?-?- 22w 4d 180 lb 120/86 Negative -?-?-?-?-?-?-?-?-?-?-?-?- Negative 158 -?-?-?-?-?-?-?-?-?-?-?-?- JV- sonolucent a trudi in placenta getting smaller. still has not seen pulm but states feels better. no other complaints today. 07/29/22 -?-?-?-?-?-?-?-?-?-?-?-?- 30w 1d 189 lb 6 oz 117/82 Nega tive -?-?-?-?-?-?-?-?-?-?-?-?- Negative 155 -?-?-?-?-?-?-?-?-?-?-?-?- JV- pt needs 3 h r gtt. phone number given to schedule. pelvic support belt rx given. no other complaints. 08/11/22 -?-?-?-?-?-?-?-?-?-?-?-?- 32w 0d 192 lb 4 oz 114/70 Nega tive -?-?-?-?-?-?-?-?-?-?-?-?- Negative 152 31 -?-?-?-?-?-?-?-?-?-?-?-?- MH-No VB, LOF. G ood FM. Growth US tomorrow. 08/26/22 -?-?-?-?-?-?-?-?-?-?-?-?- 34w 1d 200 lb 113/79 Negative -?-?-?-?-?-?-?-?-?-?-?-?- Negative 163 34 -?-?-?-?-?-?-?-?-?-?-?-?- MH-No Vb, LOF. G ood FM. Faisal wrist pain/tingling:enc splints. 09/10/22 -?-?-?-?-?-?-?-?-?-?-?-?- 36w 2d 202 lb 4 oz 126/80 Nega tive -?-?-?-?-?-?-?-?-?-?-?-?- Negative 156 36 0 -?-?-?-?-?-?-?-?-?-?-?-?- 20 -4 LC- no lof /vb/ctx. good fm. gbs collected today. no concerns. 09/17/22 -?-?-?-?-?-?-?-?-?-?-?-?- 37w 2d 205 lb 4 oz 130/80 Nega tive -?-?-?-?-?-?-?-?-?-?-?-?- Negative 152 37 -?--?-?-?-?-?-?-?-?-?-?-?- MH-NoVB, LOF. Go od FM. NO CTX, declines internal exam 09/26/22 -?-?-?-?-?-?-?-?-?-?-?-?- 38w 4d 206 lb 8 oz 130/86 124/84 Trace -?-?-?-?-?-?-?-?-?-?-?-?- Negative 150 38 1.5 -?-?-?-?-?-?-?-?-?-?-?-?- 50 -2 JV- no lof , vaginal bleeding, or dec fm. wants to talk IOL. not favorable 10/01/22 -?-?-?-?-?-?-?-?-?-?-?-?- 39w 2d 210 lb 2 oz 132/90 126/80 1+ -?-?-?-?-?-?-?-?-?-?-?-?- Negative 140 38 2 -?-?-?-?-?-?-?-?-?-?-?-?- 60 -2 LC- no lof /vb/ctx. good fm. membranes swept. labor and PEC precautions reviewed. LC- no lof/vb/ctx. good fm. membranes swept. labor and PEC precautions reviewed.sending urine for P:C ratio. d/w JV. will hold out pt labs NST FHR Rate Baby A Baseline: 145 Variability:: Moderate Accelerations:: 15 x 15 Decelerations:: None NST Reactive:: Yes FHR Category:: Category I Uterine Activity:: q2-4 minutes ROS Cardiovascular Cardiovascular: Denies abdominal pain, chest pain, diaphoresis or dyspnea Respiratory/Chest Respiratory/Chest: Denies change in mental status, chest congestion, chest tightness, cough, shortness of breath at rest, shortness of breath with exertion, breast mass, breast pain, breast skin changes, breast swelling, change in breast shape or nipple discharge Genitourinary Genitourinary: Reports change in urinary stream Musculoskeletal Musculoskeletal: Reports none Integumentary Integumentary: Reports none Neurologic Neurologic: Reports none Psychiatric Psychiatric: Reports none Endocrine Endocrinology: Reports none Hematologic/Lymphatic Hematologic/Lymphatic: Reports none Allergic/Immunologic Allergic/Immunologic: Reports none Vital Signs Vital Signs Vital Signs: 10/04/22 19:25 10/04/22 19:25 10/04/22 19:22 Temperature Temperature Source Temporal Pulse Rate 88 Blood Pressure BP Systolic BP Diastolic Pulse Ox 98 10/04/22 19:22 10/04/22 19:37 10/04/22 19:37 Temperature 97.2 F L Temperature Source Pulse Rate 83 Blood Pressure 151/95 H BP Systolic 151 BP Diastolic 95 Pulse Ox 10/04/22 19:53 10/04/22 19:53 10/04/22 20:18 Temperature Temperature Source Pulse Rate 75 Blood Pressure 156/101 H 144/93 H BP Systolic 156 144 BP Diastolic 101 93 Pulse Ox 10/04/22 20:18 10/04/22 20:37 10/04/22 20:37 Temperature Temperature Source Pulse Rate 80 85 Blood Pressure 141/98 H BP Systolic 141 BP Diastolic 98 Pulse Ox 10/04/22 20:52 10/04/22 20:52 10/04/22 21:07 Temperature Temperature Source Pulse Rate 96 Blood Pressure 144/101 H 158/93 H BP Systolic 144 158 BP Diastolic 101 93 Pulse Ox 10/04/22 21:07 10/04/22 21:25 10/04/22 21:25 Temperature Temperature Source Pulse Rate 80 88 Blood Pressure 195/112 H BP Systolic 195 BP Diastolic 112 Pulse Ox 10/04/22 21:39 10/04/22 21:40 10/04/22 21:40 Temperature Temperature Source Pulse Rate 71 Blood Pressure 146/89 H BP Systolic 146 BP Diastolic 89 Pulse Ox 97 10/04/22 21:54 10/04/22 21:54 Temperature Temperature Source Pulse Rate 78 Blood Pressure 140/79 H BP Systolic 140 BP Diastolic 79 Pulse Ox Weight Weight: 207 lb 0.225 oz Body Mass Index (BMI) 39.1 Physical Exam Const alert, oriented x3 and no apparent distress General Appearance: cooperative, comfortable and well kempt Orientation / Consciousness: awake and oriented to person Exam Limitations: no limitations HEENT normocephalic Neck full ROM Chest inspection of chest normal Resp normal respiratory effort, normal air movement and no retractions Effort and Inspection: able to speak in complete sentences and symmetric chest movement Cardio regular rate Peripheral Pulses: pulses 2+ throughout GI normal to inspection, nondistended, normoactive bowel sounds Inspection: gravid no CVA tenderness and appearance of the vagina normal External Female Exam: normal appearance of the urethra; Negative for external lesion OB / External & Speculum: external exam normal Manual OB Exam: estimated gestational size appropriate and presentation cephalic Uterus Palpation: Negative for uterus tender Extremity normal to inspection Skin no rashes or lesions noted Neuro deep tendon reflexes 2+ bilaterally and gait normal Motor Exam: strength 5/5 throughout and clonus absent Psych Activity / Motor Behavior: appropriate eye contact Speech: normal speech Labs Labs Labs: Blood Type A POSITIVE Antibody Screen NEGATIVE Hct 38.9 % (37-47) Hgb 12.6 g/dL (12.0-15.0) Syphilis Total Ab Non-reactive Rubella IgG Antibody Reactive (Nonreactive) Hep Bs Antigen Non-Reactive (Nonreactive) Chlamydia DNA (NATHANIEL) Negative (Negative) Neisseria gonorrhoeae DNA (NATHANIEL) Negative (Negative) HIV 1&2 Antibody Non-Reactive (Nonreactive) Glucose 1 Hr 50 gm 140 mg/dL (70-140) Assessment & Plan (1) : QUALIFIERS: Weeks of gestation: 39 weeks Qualified Code(s): Z3A.39 - 39 weeks gestation of COMMENT: declined NIPT & Carrier testing, failed 1 hr gct, 3HR GTT neg. nl anatomy, GBS neg, (2) Supervision of high risk , antepartum: COMMENT: PRR NATY 10/06/22 girl Yann CAVAZOSAreli James (3) Marijuana abuse: COMMENT: Positive at NOB, random tox; Neg 08/11/22 PLAN: urine tox on admission social work consult (4) Pre-eclampsia affecting , antepartum: COMMENT: P:C ratio 920. BP 140-150s/90s without severe features. PLAN: not severe range BP. will hold on HTN protocol or magnesium consulted with Dr. Dakota Alegria, will continue co-management in labor and delivery. PLAN: Plan Patient presents IAL with pre-eclampsia plan expectant management for , pitocin/AROM PRN if needed Pain management: plans epidural. GBS negative. Management of any complications: see problem list I have reviewed the [facility] and made any clinically relevant updates Dakota Alegria MD updated on admission, exam and POC and agrees with above management. will continue to co-manage patient due to pre-eclampsia. BP currently stable not requiring medication management.
[2022-10-04 22:23] LABS: Amphetamine Urine VISTA NEGATIVE (<1000 ng/mL); Barbiturate Urine VISTA NEGATIVE (< 200 ng/mL); Benzodiazepine Urine VISTA NEGATIVE (< 200 ng/mL); Cocaine Urine VISTA NEGATIVE (< 300 ng/mL); Ecstacy Urine VISTA NEGATIVE (< 500 ng/mL); Methadone Urine VISTA NEGATIVE (< 300 ng/mL); PCP Urine VISTA NEGATIVE (< 25 ng/mL); THC Urine VISTA NEGATIVE (< 50 ng/mL); Vista UDS pH Range 5
[2022-10-04 22:37] LABS: Syphilis Antibodies Non-reactive
[2022-10-04] MEDS: fentaNYL-bupivacaine (epidural) 100 ML BAG EPIDURAL (23:02)
[2022-10-04] MEDS: Mag Hydrox/Al Hydrox/Simeth 30 ML UDC PO (23:30)
[2022-10-05] VITALS (47 sets, daily range): BP systolic 101–129; BP diastolic 52–80; PULSE 70–163; RESP 14–16; TEMP 36.1–37.4; O2SAT 72–100
[2022-10-05] MEDS: LACTATED RINGERS 500 ML 999 ML IV ×2 (00:35→01:56)
[2022-10-05] MEDS: Ondansetron 4 MG/2 ML Vial IV (01:32)
[2022-10-05] MEDS: Lactated Ringers 1,000 ML 200 ML IV (01:56)
[2022-10-05] MEDS: Sodium Citrate/Citric Acid 30 ML UDC PO (02:11)
[2022-10-05] MEDS: Acetaminophen 500 MG Tablet PO (02:11)
--- NOTE | 2022-10-05 02:22 | PCM.PN.OB ---
Subjective Subjective Patient comfortable with epidural. Objective Data Objective Data Vital Signs: Vital Signs Temp Pulse Resp BP Pulse Ox O2 Del Method 98.1 F 106 H 16 117/59 L 93 Nasal Cannula 10/05/22 01:59 10/05/22 02:15 10/05/22 01:59 10/05/22 02:00 10/05/22 02:15 10/05/22 01:59 Oxygen Delivery Method Nasal Cannula Weight: 207 lb 0.225 oz Body Mass Index (BMI) 39.1 Intake & Output: Intake and Output for Last 24 Hours 10/03/22 10/04/22 10/05/22 23:59 23:59 23:59 Intake Total 500 / 500 700.83 / 700.83 Balance 500 / 500 700.83 / 700.83 Lab / Micro Data Result Diagrams: 10/04/22 20:25 10/04/22 20:25 Labs: Laboratory Results - last 24 hr 10/04/22 20:25: WBC 13.4 H, RBC 4.39, Hgb 12.6, Hct 38.9, MCV 88.6, MCH 28.7, MCHC 32.4, RDW Std Deviation 43.7, RDW Coeff of Bradley 13.5, Plt Count 274, MPV 11.4 10/04/22 20:25: U Random Total Protein 336.8 H, Urine Creatinine 366.00, Protein/Creatinin Ratio 920 H 10/04/22 20:25: Creatinine 0.76, Estim Creat Clear Calc 86.87, Est GFR (MDRD) Af Amer 120, Est GFR (MDRD) Non-Af 99, Uric Acid 4.2, AST 16, ALT 9 L 10/04/22 20:25: Lactate Dehydrogenase 156 10/04/22 20:25: Blood Type A POSITIVE, Antibody Screen NEGATIVE 10/04/22 20:25: Syphilis Total Ab Non-reactive 10/04/22 21:30: Urine Opiates Screen NEGATIVE, Urine Methadone Screen NEGATIVE, Ur Barbiturates Screen NEGATIVE, Ur Phencyclidine Scrn NEGATIVE, Ur Amphetamines Screen NEGATIVE, MDMA (Ecstasy) Screen NEGATIVE, U Benzodiazepines Scrn NEGATIVE, Urine Cocaine Screen NEGATIVE, U Cannabinoids Screen NEGATIVE, Ur Drug Screen Comment Physical Exam Const alert, oriented x3, no apparent distress, average body habitus, healthy appearing and well nourished HEENT normocephalic and moist oral mucous membranes Eyes PERRL Resp normal respiratory effort, no retractions and no use of accessory muscles GI GI Narrative: Soft, nontender, gravid Narrative: Pelvic exam: Cervical exam 10/100/+2 Psych mental status grossly normal, affect normal, speech normal and activity/motor behavior normal Assessment & Plan (1) : QUALIFIERS: Weeks of gestation: 39 weeks Qualified Code(s): Z3A.39 - 39 weeks gestation of COMMENT: declined NIPT & Carrier testing, failed 1 hr gct, 3HR GTT neg. nl anatomy, GBS neg, PLAN: Called by nurse camera tuning engineer Dennise with prolonged decelerations with pushing, given orders to call EXECUTIVE BUSINESS COACH and prepare OR for possible , nursing camera tuning engineer states heart tones recovered to normal baseline. Arrived to room, patient seen and examined. Educated patient on findings and discussed need for pelvic exam, patient states understanding wish to proceed. Pelvic exam as above. Educated patient on options for operative delivery versus section risk benefits alternatives. Patient and partner state understanding and wished to proceed with primary section. Patient understands risk of the procedure include but are not limited to visceral or vascular injury, prolonged hospitalization, blood loss and need for transfusion, reoperation. Patient states understanding and wishes to proceed. All questions were answered and consent was signed. For elective primary section, given orders to nursing for 2 g Ancef and 500 mg of azithromycin, discussed with EXECUTIVE BUSINESS COACH, order for peds for delivery.
[2022-10-05] MEDS: Cefazolin 2 GM in 0.9% Normal Saline 100 ML IV (02:23)
--- NOTE | 2022-10-05 03:09 | EX.PCM.OBRPT ---
Maternal Data Information NATY Calculator Estimated Delivery Date Method Current WG Current Estimate 10/06/22 LMP (Certain) 39w 6d Other Estimates 10/04/22 Ultrasound #1 40w 1d Details Operative Information Date of Procedure: 10/05/22 Pre-Operative Diagnosis: Term, preeclampsia without severe features, elective Post-Operative Diagnosis: Term, preeclampsia without severe features, elective production consultant #1: Dori Munguia Findings Description of Procedure: Procedure: Primary low transverse section Via Pfannenstiel incision Surgeon: Dakota Alegria MD Anesthesia: Epidural EBL: 800 cc Urine output: 50 cc IV fluids: 500 cc Complications: None Specimen: None Findings: Female infant in vertex position Apgars 8/9. Normal uterus, tubes, and ovaries. Consent: Patient with nonreassuring heart tones offered operative delivery versus section patient elects for primary section Via Pfannenstiel incision. Patient understands risk of the procedure include but are not limited to visceral or vascular injury, prolonged hospitalization, blood loss and need for transfusion, reoperation. Patient state understanding wish to proceed. All questions were answered and consent was signed. Procedure: Patient was brought back to the OR where epidural anesthesia was found to be adequate. 2 g Ancef and 500 mg of azithromycin were given for infection prophylaxis. Patient was prepared and draped in a supine position with leftward tilt. A Pfannenstiel incision was made at the skin with a scalpel. The incision was carried down to the fascia with a scalpel. The fascia was excised and extended laterally. Inferior aspect of the fascia was grasped with a clamp and the underlying rectus and pyramidalis muscle were dissected off sharply. In a similar fashion the superior aspect of the fascia was grasped with a clamp and the underlying rectus muscle was dissected off sharply. Rectus muscle was dissected at the midline down to the level of pubic symphysis. Preperitoneal fatty tissue was noted peritoneum was entered bluntly. Peritoneum was extended superiorly and inferiorly with good visualization of bladder. Bladder blade was inserted and vesicouterine peritoneum was identified. Low transverse hysterotomy was made. Hand was placed into the incision and gentle fundal pressure was applied once the head was brought into the incision and the bladder blade was removed. Head and shoulders were delivered with ease. Cord was clamped and cut. Baby is handed off to nursing. Placenta was delivered via cord traction and fundal massage. IV oxytocin was initiated in order to facilitate uterine contractions. Uterus was exteriorized and wiped out with dry laparotomy sponge in order to remove remaining placental membranes. Small left uterine extension was noted and was closed with hysterotomy. Hysterotomy was closed in a continuous running fashion with Vicryl suture. Hemostasis was achieved with the Bovie and [id number] sutures with Monocryl suture. Uterus was placed back into the abdominal cavity and good hemostasis was noted. Fascia was closed in a continuous running fashion with PDS suture. Subcutaneous irrigation was performed and hemostasis was achieved with the Bovie. Good hemostasis was noted. Skin was closed in a subcuticular fashion. All counts were correct x2. Patient tolerated the procedure well and was brought to recovery in a stable condition.
[2022-10-05] MEDS: Oxytocin 15 Units/NS 250ml 15 UNITS/250 ML IV.SOLN 83 UNITS IV (03:42)
[2022-10-05] MEDS: Ketorolac 30 MG/ML Syringe IV ×4 (04:07→22:02)
[2022-10-05] MEDS: Lactated Ringers 1,000 ML 100 ML IV (05:36)
[2022-10-05] MEDS: Acetaminophen 500 MG Tablet 1000 MG PO ×3 (09:00→21:34)
[2022-10-05] MEDS: Senna/Docusate Sodium 1 Tablet PO (10:14)
[2022-10-05] MEDS: Famotidine 20 MG Tablet PO (10:14)
--- NOTE | 2022-10-05 13:49 | PCM.PN.OB ---
Subjective Subjective Patient doing well without complaints. Tolerating PO. Ambulating without difficulty, due to void following hinkle catheter removal at 10am. Feeding well. Denies chest pain, shortness of breath, calf pain/swelling, fevers, chills, lightheadedness. denies headache, visual changes or RUQ pain. Objective Data Objective Data Vital Signs: Vital Signs Temp Pulse Resp BP Pulse Ox O2 Del Method 98.2 F 102 H 16 101/52 L 95 Room Air 10/05/22 12:07 10/05/22 12:07 10/05/22 13:13 10/05/22 12:07 10/05/22 13:13 10/05/22 13:13 Oxygen Delivery Method Room Air Weight: 207 lb 0.225 oz Body Mass Index (BMI) 39.1 Intake & Output: Intake and Output for Last 24 Hours 10/03/22 10/04/22 10/05/22 23:59 23:59 23:59 Intake Total 500 / 500 2429.16 / 2429.16 Output Total 1020 / 1020 Balance 500 / 500 1409.16 / 1409.16 Lab / Micro Data Attestation: I reviewed the patient's lab results. Result Diagrams: 10/04/22 20:25 10/04/22 20:25 Labs: Laboratory Results - last 24 hr 10/04/22 20:25: WBC 13.4 H, RBC 4.39, Hgb 12.6, Hct 38.9, MCV 88.6, MCH 28.7, MCHC 32.4, RDW Std Deviation 43.7, RDW Coeff of Bradley 13.5, Plt Count 274, MPV 11.4 10/04/22 20:25: U Random Total Protein 336.8 H, Urine Creatinine 366.00, Protein/Creatinin Ratio 920 H 10/04/22 20:25: Creatinine 0.76, Estim Creat Clear Calc 86.87, Est GFR (MDRD) Af Amer 120, Est GFR (MDRD) Non-Af 99, Uric Acid 4.2, AST 16, ALT 9 L 10/04/22 20:25: Lactate Dehydrogenase 156 10/04/22 20:25: Blood Type A POSITIVE, Antibody Screen NEGATIVE 10/04/22 20:25: Syphilis Total Ab Non-reactive 10/04/22 21:30: Urine Opiates Screen NEGATIVE, Urine Methadone Screen NEGATIVE, Ur Barbiturates Screen NEGATIVE, Ur Phencyclidine Scrn NEGATIVE, Ur Amphetamines Screen NEGATIVE, MDMA (Ecstasy) Screen NEGATIVE, U Benzodiazepines Scrn NEGATIVE, Urine Cocaine Screen NEGATIVE, U Cannabinoids Screen NEGATIVE, Ur Drug Screen Comment Physical Exam Const alert and no apparent distress Neck full ROM and nuchal rigidity Chest inspection of chest normal Nipple/Areola: nipples/areola normal Resp normal respiratory effort, normal air movement, no retractions, no use of accessory muscles and clear to auscultation bilaterally Cardio regular rate and regular rhythm GI normal to inspection, nondistended, normoactive bowel sounds GI Narrative: fundus firm at u, moderate lochia, no clots. Bladder / Kidney Exam: bladder normal to palpation Extremity normal to inspection, full ROM, no calf tenderness and no pedal edema Skin Skin Narrative: dressing c/d/i Psych mental status grossly normal Assessment & Plan (1) Pre-eclampsia affecting , antepartum: COMMENT: P:C ratio 920. BP 140-150s/90s without severe features. day 0: normal BP, VSS PLAN: f/u in office for BP check 1 week (2) Supervision of high risk , antepartum: COMMENT: PRR NATY 10/06/22 david Ramirez (3) Marijuana abuse: COMMENT: Positive at NOB, random tox; Neg 08/11/22 (4) delivery delivered: COMMENT: IAL/PEC, prolong decel. primary CS. Aleyda Alegria MD. david Armasey PLAN: Plan s/p LTCS PPD # 0 1. routine post care 2. breast feeding- support given 3. rh positive 4. rubella immune 5. due to void
[2022-10-05] MEDS: 0.9% Saline Lock 10 ML Syringe IV ×2 (16:15→22:03)
[2022-10-05] MEDS: Enoxaparin 40 MG/0.4 ML Syringe SC (17:35)
[2022-10-06 00:43] VITALS: PULSE 104; RESP 13; O2SAT 94
[2022-10-06 02:43] VITALS: RESP 15; O2SAT 94
[2022-10-06] MEDS: Acetaminophen 500 MG Tablet 1000 MG PO ×2 (03:03→09:36)
[2022-10-06 04:00] VITALS: BP 115/67; PULSE 97; RESP 16; O2SAT 95
[2022-10-06] MEDS: Ibuprofen 600 MG Tablet PO ×2 (04:21→09:36)
[2022-10-06 04:43] VITALS: RESP 14; O2SAT 95
[2022-10-06 08:09] VITALS: BP 128/90; PULSE 93; RESP 16; TEMP 36.9; O2SAT 96
[2022-10-06] MEDS: Famotidine 20 MG Tablet PO (09:35)
[2022-10-06] MEDS: Senna/Docusate Sodium 1 Tablet PO (09:35)
--- NOTE | 2022-10-06 09:39 | PCM.PN.OB ---
Subjective Subjective Patient doing well without complaints. Tolerating PO. Ambulating and voiding without difficulty. Feeding well. Denies chest pain, shortness of breath, calf pain/swelling, fevers, chills, lightheadedness. Objective Data Objective Data Vital Signs: Vital Signs Temp Pulse Resp BP Pulse Ox O2 Del Method 98.5 F 93 16 128/90 H 96 Room Air 10/06/22 08:09 10/06/22 08:09 10/06/22 08:09 10/06/22 08:09 10/06/22 08:09 10/06/22 08:09 Oxygen Delivery Method Room Air Weight: 207 lb 0.225 oz Body Mass Index (BMI) 39.1 Intake & Output: Intake and Output for Last 24 Hours 10/04/22 10/05/22 10/06/22 23:59 23:59 23:59 Intake Total 500 / 500 3429.16 / 3429.16 Output Total 1920 / 1920 Balance 500 / 500 1509.16 / 1509.16 Lab / Micro Data Result Diagrams: 10/04/22 20:25 10/04/22 20:25 Physical Exam Const alert and no apparent distress Neck full ROM and nuchal rigidity Chest inspection of chest normal Nipple/Areola: nipples/areola normal Resp normal respiratory effort, normal air movement, no retractions, no use of accessory muscles and clear to auscultation bilaterally Cardio regular rate and regular rhythm GI normal to inspection, nondistended, normoactive bowel sounds GI Narrative: fundus firm at 1 below u, small lochia, no clots. Bladder / Kidney Exam: bladder normal to palpation Extremity normal to inspection, full ROM, no calf tenderness and no pedal edema Skin Skin Narrative: dressing c/d/i Psych mental status grossly normal Assessment & Plan (1) delivery delivered: COMMENT: IAL/PEC, prolong decel. primary CS. Aleyda Alegria MD. girl [place] PLAN: s/p LTCS PPD # 1 1. routine post care 2. breast feeding- support given 3. rh positive 4. rubella immune 5. d/c home today (2) Pre-eclampsia affecting , antepartum: COMMENT: P:C ratio 920. BP 140-150s/90s without severe features. day 1: normal BP, VSS. PLAN: follow up in office on /thursday for BP check. will monitor at home, parameters given
[2022-10-06 12:03] VITALS: BP 129/82; PULSE 101; RESP 15; TEMP 37.1; O2SAT 97
== END 2022-10-06 12:45 | disposition home or self-care (01) | DRG 540 ==
LOC: WPOUT 21:26 → WP 21:26
PROVIDERS: Registered Nurse; Admitting Provider Obstetrics & Gynecology; Referring Provider Obstetrics & Gynecology; Visit Provider Obstetrics & Gynecology
DX: O14.94 Unspecified pre-eclampsia, complicating childbirth (principal); O99.324 Drug use complicating childbirth; F12.10 Cannabis abuse, uncomplicated; Z37.0 Single live birth; Z3A.39 39 weeks gestation of pregnancy
CPT/HCPCS: 59025; 59050; 80307; 82565; 82570; 83615; 84156; 84450; 84460; 84550; 85027; 86780; 86850; 86900; 86901; 99221; J7120; A4216; G0378; J2405

== ENCOUNTER → 2024-05-17 | Outpatient (CLI) | payer MEDICAID, SELFPAY ==
[2024-05-20 09:52] LABS: HPV Reflexed? NOT INDICATED
== END | disposition home or self-care (01) ==
LOC: BWCLAB 14:01
PROVIDERS: Referring Provider Obstetrics & Gynecology; Visit Provider Obstetrics & Gynecology
DX: Z12.4 Encounter for screening for malignant neoplasm of cervix (principal)
CPT/HCPCS: 88175; G0145